=== PATIENT | male | born 1985 | race Caucasian/White ===

== ENCOUNTER 2019-02-22 22:18 | Emergency (ER) | payer OTHER ==
[2019-02-22 22:22] VITALS: BP 123/82
--- NOTE | 2019-02-22 22:29 | EDPHY ---
H & P Stated Complaint: right ankle injury laying basketball, heard a pop Time Seen by Provider: 02/22/19 22:28 HPI/ROS: HPI: This is a 33-year-old male who presents with Chief Complaint: right ankle injury playing basketball, heard a pop Location: Right ankle Quality: Injury Duration: Prior to arrival Signs and Symptoms: No bleeding, no radiation, no numbness, no weakness, no tingling, no incontinence, no decreased range of motion, + swelling, + pain, no fever Timing: Acute, constant Severity: Moderate Context: Patient was playing basketball prior to arrival when he quickly moved from side to side and inverted his right ankle. He felt a pulling sensation and heard a popping sound on the lateral aspect. He felt immediate, constant, nonradiating pain. Pain is increased with weight-bearing and he is unable to bear weight secondary to the pain. Prior history of ankle sprains in that ankle. Denies radiation, weakness, decreased range of motion. Modifying Factors: Ice pack applied Comment: ROS: A comprehensive 10 system review of systems is otherwise negative aside from elements mentioned in the history of present illness. MEDICAL/SURGICAL/SOCIAL HISTORY: Medical history: Generally healthy. Does not take any regular medications. Surgical history: Denies Social history: Never smoked. Employed. Engaged. CONSTITUTIONAL: Physically fit adult white male, awake and alert, no obvious distress HEENT: Atraumatic and normocephalic, PERRL, EOMI. Nares patent; no rhinorrhea; no nasal mucosal edema. Tympanic membranes clear. Oropharynx clear, no exudate and moist pink mucosa. Airway patent. No lymphadenopathy. No meningismus. Cardiovascular: Normal S1/S2, regular rate, regular rhythm, without murmur rub or gallop. PULMONARY/CHEST: Symmetrical and nontender. Clear to auscultation bilaterally. Good air movement. No accessory muscle usage. ABDOMEN: Soft, nondistended, nontender, no rebound, no guarding, no peritoneal signs, no masses or organomegaly. No CVAT. EXTREMITIES: 2/2 pedal pulses, strength 5/5, right Ankle: Moderate swelling over the lateral malleolus; Plantar flexion to 50, dorsiflexion to 20. Foot inversion to 35 degree. Moderate tenderness/swelling Anterior talofibular ligament. No tenderness/swelling Calcaneofibular ligament, no tenderness/ swelling posterior talofibular ligament, no tenderness/swelling posterior inferior tibiofibular ligament. Achilles tendon intact. no deformities, no clubbing, no cyanosis or edema. NEUROLOGICAL: no focal neuro deficits. GCS 15. SKIN: Warm and dry, no erythema. no rash. Good capillary refill. Source: Patient Exam Limitations: No limitations - Personal History Current Tetanus Diphtheria and Acellular Pertussis (TDAP): Yes - Medical/Surgical History Hx Asthma: No Hx Chronic Respiratory Disease: No Hx Diabetes: No Hx Cardiac Disease: No Hx Renal Disease: No Hx Cirrhosis: No Hx Alcoholism: No Hx HIV/AIDS: No Hx Splenectomy or Spleen Trauma: No Other PMH: none - Social History Smoking Status: Never smoked Constitutional: Initial Vital Signs Temperature (C) 36.5 C 02/22/19 22:19 Heart Rate 80 02/22/19 22:19 Respiratory Rate 16 02/22/19 22:19 Blood Pressure 123/82 H 02/22/19 22:19 O2 Sat (%) 91 L 02/22/19 22:19 Allergies/Adverse Reactions: No Known Allergies Allergy (Unverified 02/22/19 22:22) Home Medications: Medication Instructions Recorded NK [No Known Home Meds] 02/22/19 Medical Decision Making - Diagnostics Imaging Results: Imaging Impressions Ankle X-Ray 02/22/19 22:34 Impression: Small ossification lateral to the talus which could be small avulsion fracture, acute or chronic. Procedures: Procedure: Splint placement. A right Sorto boot and crutches were applied. After application of the splint I returned and re-examined the patient. The splint was adequately immobilizing the joint and distal to the splint the patient's circulation and sensation was intact. ED Course/Re-evaluation: Vital signs reviewed and stable upon arrival. Right ankle x-ray ordered my read shows no fracture, no dislocation. Placed in Sorto boot, crutches, Orthopedic follow-up as needed No signs of neurovascular compromise/tenting of skin/compartment syndrome/ extremities and joints examined above and below area of concern and are neurovascularly intact. This patient was seen under the supervision of my secondary supervising physician. I evaluated and cared for this patient independently. Differential Diagnosis: Ankle injury differential diagnosis includes but is not limited to tibia fracture, fibula fracture, metatarsal fracture, LisFranc fracture, achilles tendon rupture, sprain. - Data Points Medications Given: Discontinued Medications Oxycodone/Acetaminophen (Percocet 5/325mg Prepack#4) 1 btl HECTOR MARCUS ONE Stop: 02/22/19 22:40 Last Admin: 02/22/19 22:58 Dose: 1 btl Departure - Departure Disposition: Home, Routine, Self-Care Clinical Impression: Moderate right ankle sprain Qualifiers: Encounter type: initial encounter Qualified Code(s): S93.401A - Sprain of unspecified ligament of right ankle, initial encounter Condition: Good Instructions: Hydrocodone/Acetaminophen (By mouth), Ankle Sprain (DC), Crutch Instructions (ED) Additional Instructions: Wear the walking boot while out of bed until pain free or seen by Orthopedics. Use crutches to aid ambulation. Start with toe-touch weight-bearing status. Take Tylenol 650 mg every 4 hours and/or Ibuprofen 600 mg every 8 hours with food as needed for pain. Use Percocet every 6 hours as needed for severe/break through pain. Do not use Tylenol and Percocet concomitantly. Apply ice for 30 minutes at a time; 2-3 times per day for the next 1-2 days. Follow up with Orthopedics in 7-10 days if symptoms persist at which time they will evaluate and recommend with you if conservative management versus MRI is indicated. The x-rays obtained in the emergency department today demonstrate no evidence of an obvious fracture. Sometimes fractures are not obvious on the initial set of x-rays performed in the ED. For this reason, you should have repeat x-rays performed in 7-10 days if you are having any pain exclude the possibility of an occult fracture. Referrals: DEISI CLARKE [Primary Care Provider] - As per Instructions Mario Yoo MD [Medical Doctor] - As per Instructions
[2019-02-22] MEDS ORDERED: OXYCODONE/APAP 5/325MG PREPACK#4 BTL TAKEHOME ONE (22:39)
== END 2019-02-22 23:05 | disposition home or self-care (01) ==
DX: S93.401A Sprain of unspecified ligament of right ankle, initial encounter (principal); X50.1XXA Overexertion from prolonged static or awkward postures, initial encounter; Y93.67 Activity, basketball
CPT/HCPCS: L4386